=== PATIENT | male | born 1975 | race Caucasian/White ===

== ENCOUNTER 2018-08-24 12:15 | Emergency (ER) | payer MEDICAID, SELFPAY ==
[~2018-08-24] VITALS: Ht 175.3 cm; Wt 120.3 kg
[2018-08-24 12:33] VITALS: BP 123/75
== END 2018-08-24 14:01 | disposition home or self-care (01) ==
LOC: ED 13:55
DX: J00 Acute nasopharyngitis [common cold] (principal); B34.9 Viral infection, unspecified
CPT/HCPCS: 71045; 99283